=== PATIENT | male | born 1940 | race Caucasian/White ===

== ENCOUNTER → 2017-08-20 | Outpatient (CLI) | payer MEDICARE, BC ==
[~2017-08-20] MED LIST: ASPIRIN 81M81 MG/TA2 PO; COREG 25MG25 MG/TAB; COREG12.5 MG PO; CYANOCOBAL1000 MCG/1 IM; DESYREL 50MG50 MG PO; EFFEXOR XR75 MG/CAP PO; FERROUS SU325 MG/TAB PO; FOLIC ACID0.4 MG PO; HUMULIN N 10100 U/ML SQ; HUMULIN R 10100 U/ML SQ; LASIX 80MG TABL80 MG PO; LIPITOR 80MG80 MG PO; LYRICA 150MG C150 MG PO; NOVOLOG 100U100 U/M1 SQ; PERCOCET 325 MG1 TA2 PO; PROSCAR 5MG5 MG PO; PROTONIX 40MG T40 MG PO; RAZADYNE ER24 MG PO; REQUIP2 MG PO; VITAMINC1000TA; ZESTRIL 20MG TA20 MG PO; ZYRTEC 10MG10 MG PO
== END ==
LOC: COL.RAD 12:52
DX: M19.012 Primary osteoarthritis, left shoulder (principal); Z53.9 Procedure and treatment not carried out, unspecified reason